=== PATIENT | male | born 1955 | race African-American/Black ===

== ENCOUNTER 2017-12-10 13:22 | Inpatient (IN) | payer OTHER ==
[~2017-12-10] VITALS: Ht 188 cm; Wt 95.4 kg
[~2017-12-10 13:22] MED LIST: HYDR-1421
[2017-12-10 15:29] LABS: Basophils # (auto) 0 uL; Basophils % (auto) 0.3 % (0.0-2.0); Eosinophils # (auto) 0.2 uL; Eosinophils % (auto) 1.9 % (0.0-7.0); Hematocrit 46.9 % (41.0-53.0); Hemoglobin 15.7 g/dL (13.5-17.5); Lymphocytes # (auto) 1.5 uL; Lymphocytes % (auto) 15.9 % (10.0-50.0); Mean Corpuscular Hemoglobin 33.3 pg (28.0-32.0); Mean Corpuscular Hgb Conc. 33.5 g/dL (32.0-36.0); Mean Corpuscular Volume 99.4 fL (80.0-100.0); Monocytes # (auto) 0.8 uL; Monocytes % (auto) 8.1 % (0.0-12.0); Neutrophils # (auto) 7.2 uL; Neutrophils % (auto) 73.8 % (37.0-80.0); Nucleated Red Blood Cells % 0.1 %; Platelet Count (auto) 190 10^3/uL (140-450); Red Blood Cells 4.71 10^6/uL (4.5-5.90); White Blood Cell 9.7 10^3/uL (4.4-10.8)
[2017-12-10 15:47] LABS: Albumin 3.4 g/dL (3.4-5.0); BUN/Creatinine Ratio 11.5; Bilirubin, Total 1.1 mg/dL (0.2-1.0); Calcium 8.4 mg/dL (8.5-10.1); Potassium 3.7 mmol/L (3.5-5.1); Total Protein 7.7 g/dL (6.4-8.2)
[2017-12-10] MEDS ORDERED: NITROGLYCERIN 0.4 MG SL TAB SL PRN (16:00)
[2017-12-10] MEDS ORDERED: MORPHINE SULFATE 4 MG/ML SYR/VIAL IV PRN (16:00)
[2017-12-10] MEDS ORDERED: PANTOPRAZOLE 40 MG/10 ML VIAL IV ONE (16:00)
[2017-12-10] MEDS ORDERED: LEVOFLOXACIN 500MG 100 ML IV ONE (16:00)
[2017-12-10] MEDS ORDERED: LORazepam 2MG/ML-1ML VIAL IV PRN (16:00)
[2017-12-10] MEDS ORDERED: MORPHINE SULF INJ 2 MG/ML SYRINGE 1ML IV PRN ×2 (16:00)
[2017-12-10] MEDS ORDERED: ONDANSETRON HCL 4 MG/2 ML VIAL IV PRN (16:00)
[2017-12-10] MEDS: SODIUM CHLORIDE 0.9% 1,000 ML IV SCH (16:38)
[2017-12-10] MEDS ORDERED: TRIATAB3 PO (21:45)
[2017-12-10] MEDS ORDERED: ASPI325T4 PO (21:45)
[2017-12-10] MEDS ORDERED: MET50T PO (21:45)
[2017-12-10] MEDS ORDERED: CLOP75TA41 PO (21:45)
[2017-12-10] MEDS ORDERED: LISI-275 PO (21:45)
[2017-12-10] MEDS: metroNIDAZOLE 500MG/100ML 100 ML IV SCH (22:37)
[2017-12-10 22:42] VITALS: BP 146/93
[2017-12-10 23:30] LABS: Alcohol, Urine < 3.0 mg/dL (0-5); Amphetamine Screen, Urine NEGATIVE (NEGATIVE); Barbiturate Scree,Urine NEGATIVE (NEGATIVE); Benzodiazephine Screen, Urine NEGATIVE (NEGATIVE); Cannabinoid Screen, Urine NEGATIVE (NEGATIVE); Cocaine Screen, Urine NEGATIVE (NEGATIVE); Opiate Scree,Urine NEGATIVE (NEGATIVE); Phencyclidine Screen, Urine NEGATIVE (NEGATIVE)
[2017-12-11 04:50] VITALS: BP 131/78
[2017-12-11] MEDS: SODIUM CHLORIDE 0.9% 1,000 ML IV SCH ×4 (06:19→22:03)
[2017-12-11] MEDS: metroNIDAZOLE 500MG/100ML 100 ML IV SCH ×3 (06:58→22:02)
[2017-12-11 07:51] LABS: Cholesterol 175 mg/dL (< 200); HDL Cholesterol 61 mg/dL (40-59); LDL Cholesterol 114 mg/dL (< 100); Triglycerides 103 mg/dL (< 150)
[2017-12-11 09:00] VITALS: BP 129/80
[2017-12-11] MEDS: PANTOPRAZOLE 40 MG/10 ML VIAL IV SCH (10:32)
[2017-12-11] MEDS: LEVOFLOXACIN 500MG 100 ML IV SCH (10:33)
[2017-12-11 11:02] LABS: Basophils # (auto) 0.1 uL; Eosinophils # (auto) 0.4 uL; Eosinophils % (auto) 4.8 % (0.0-7.0); Hematocrit 46.1 % (41.0-53.0); Hemoglobin 15.6 g/dL (13.5-17.5); Lymphocytes # (auto) 1.8 uL; Lymphocytes % (auto) 22.6 % (10.0-50.0); Mean Corpuscular Hgb Conc. 33.8 g/dL (32.0-36.0); Mean Corpuscular Volume 100.4 fL (80.0-100.0); Monocytes # (auto) 0.5 uL; Monocytes % (auto) 6.4 % (0.0-12.0); Neutrophils # (auto) 5.3 uL; Neutrophils % (auto) 65.2 % (37.0-80.0); Platelet Count (auto) 176 10^3/uL (140-450); Red Cell Distribution Width 14.2 % (11.8-14.3); White Blood Cell 8.2 10^3/uL (4.4-10.8)
[2017-12-11 11:26] LABS: Albumin 2.8 g/dL (3.4-5.0); BUN/Creatinine Ratio 13.6; Bilirubin, Total 0.6 mg/dL (0.2-1.0); Potassium 3.8 mmol/L (3.5-5.1); Total Protein 6.5 g/dL (6.4-8.2)
[2017-12-11 13:00] VITALS: BP 136/95
[2017-12-11 17:00] VITALS: BP 123/69
[2017-12-11 21:34] VITALS: BP 142/89
[2017-12-12] MEDS: SODIUM CHLORIDE 0.9% 1,000 ML IV SCH ×2 (01:19→09:49)
[2017-12-12 05:31] VITALS: BP 140/69
[2017-12-12] MEDS: metroNIDAZOLE 500MG/100ML 100 ML IV SCH (06:34)
[2017-12-12 08:42] VITALS: BP 152/97
[2017-12-12] MEDS: PANTOPRAZOLE 40 MG/10 ML VIAL IV SCH (09:49)
[2017-12-12] MEDS: LEVOFLOXACIN 500MG 100 ML IV SCH (09:49)
[2017-12-12 13:00] VITALS: BP 132/82
== END 2017-12-12 17:09 | disposition home or self-care (01) | DRG 282 ==
LOC: ER 13:22 → TELE 13:23 → TELE-CENTR 18:40 → CENTRAL 12-11 21:40
PROVIDERS: ADMIT Internal Medicine; ATTEND Internal Medicine
DX: K85.90 Acute pancreatitis without necrosis or infection, unspecified (principal); E87.8 Other disorders of electrolyte and fluid balance, not elsewhere classified; E78.5 Hyperlipidemia, unspecified; I10 Essential (primary) hypertension; I25.10 Atherosclerotic heart disease of native coronary artery without angina pectoris; R79.89 Other specified abnormal findings of blood chemistry; F17.210 Nicotine dependence, cigarettes, uncomplicated; I25.2 Old myocardial infarction; Z95.5 Presence of coronary angioplasty implant and graft; Z88.0 Allergy status to penicillin; Z79.899 Other long term (current) drug therapy
CPT/HCPCS: 36415; 71045; 76705; 80053; 80061; 80307; 82150; 83690; 85025; 87081; 93005; 94761; 96361; 96365; 96367; 96375; C9113; J1956; J3490

== ENCOUNTER 2019-05-09 11:34 | Emergency (ER) | payer MEDICAID, OTHER ==
[~2019-05-09] VITALS: Ht 185.4 cm; Wt 95.3 kg
[~2019-05-09 11:34] MED LIST changes: +ASPI325T4 PO; +CLOP75TA41 PO; -HYDR-1421; +LISI-275 PO; +MET50T PO; +TRIATAB3 PO
[2019-05-09 11:44] VITALS: BP 130/94
== END 2019-05-09 14:21 | disposition left against medical advice (07) ==
LOC: ER 11:34
DX: R05 Cough (principal); Z53.21 Procedure and treatment not carried out due to patient leaving prior to being seen by health care provider
CPT/HCPCS: 71046

== ENCOUNTER 2020-06-30 10:24 | Emergency (ER) | payer MEDICAID ==
[~2020-06-30] VITALS: Ht 185.4 cm; Wt 99.8 kg
[~2020-06-30 10:24] MED LIST changes: -CLOP75TA41 PO; +CLOP75TA70 PO
[2020-06-30] MEDS ORDERED: DOCUSATE SOD 100 MG CAP PO ONE (10:30)
[2020-06-30 10:32] VITALS: BP 135/86
== END 2020-06-30 11:57 | disposition home or self-care (01) ==
LOC: ER 10:24
DX: N39.0 Urinary tract infection, site not specified (principal); E78.5 Hyperlipidemia, unspecified; I10 Essential (primary) hypertension; I25.2 Old myocardial infarction; F17.210 Nicotine dependence, cigarettes, uncomplicated; Z88.0 Allergy status to penicillin
CPT/HCPCS: 74018; 81002

== ENCOUNTER 2022-06-06 09:30 | Emergency (ER) | payer MEDICARE, MEDICAID ==
[~2022-06-06] VITALS: Ht 188 cm; Wt 100.0 kg
[2022-06-06] MEDS ORDERED: ALBUTEROL SULF 2.5 MG/0.5ML(0.5%) NEB SOLN NEB ONE (10:30)
[2022-06-06] MEDS ORDERED: IPRATROPIUM BROM 0.5 MG/2.5ML INH SOL NEB ONE (10:30)
[2022-06-06] MEDS: MAGNESIUM SULFATE 1GM/100ML 100 ML IV SCH ×3 (10:50→15:32)
[2022-06-06 10:52] LABS: Basophils # (auto) 0.2 10 ^3/uL (0-0.2); Basophils % (auto) 1.2 % (0.0-2.0); Eosinophils # (auto) 0.1 10 ^3/uL (0-0.8); Eosinophils % (auto) 0.4 % (0.0-7.0); Hematocrit 48.8 % (41.0-53.0); Hemoglobin 16.9 g/dL (13.5-17.5); Lymphocytes # (auto) 1.9 10 ^3/uL (0.4-5.4); Lymphocytes % (auto) 14.4 % (10.0-50.0); Mean Corpuscular Hemoglobin 33.4 pg (28.0-32.0); Mean Corpuscular Hgb Conc. 34.6 g/dL (32.0-36.0); Mean Corpuscular Volume 96.4 fL (80.0-100.0); Monocytes # (auto) 0.9 10 ^3/uL (0-1.3); Monocytes % (auto) 6.8 % (0.0-12.0); Neutrophils # (auto) 10.3 10 ^3/uL (1.6-8.6); Neutrophils % (auto) 77.2 % (37.0-80.0); Nucleated Red Blood Cells % 0.2 %; Red Blood Cells 5.07 10^6/uL (4.5-5.90); Red Cell Distribution Width 13.8 % (11.8-14.3); White Blood Cell 13.3 10^3/uL (4.4-10.8)
[2022-06-06 11:06] LABS: Albumin 3.9 g/dL (3.4-5.0); Calcium 8.8 mg/dL (8.5-10.1); Potassium 4.5 mmol/L (3.5-5.1)
[2022-06-06 11:10] LABS: BUN/Creatinine Ratio 15.4; Bilirubin, Total 0.3 mg/dL (0.2-1.0); Total Protein 7.8 g/dL (6.4-8.2)
[2022-06-06] MEDS ORDERED: HYDROcodone-ACET 5/325MG TAB PO ONE (11:30)
[2022-06-06] MEDS: DexAMETHasone SOD PHOS 10MG/1ML VIAL INJ IV ONE ×2 (11:49→12:15)
[2022-06-06] MEDS ORDERED: LACTATED RINGER'S 1,000 ML IV ONE (13:00)
[2022-06-06 14:05] LABS: Urine Bacteria NONE SEEN /hpf (None Seen); Urine Blood Negative /uL (Negative); Urine Mucus FEW (None Seen); Urine Specific Gravity 1.024 (1.001-1.035); Urine WBC 7 /hpf (0 - 3)
[2022-06-06 17:00] VITALS: BP 150/81
== END 2022-06-06 17:04 | disposition home or self-care (01) ==
LOC: EDBD 09:30 → ER 09:30
DX: J45.998 Other asthma (principal); E78.5 Hyperlipidemia, unspecified; I10 Essential (primary) hypertension; F17.210 Nicotine dependence, cigarettes, uncomplicated; Z98.890 Other specified postprocedural states
CPT/HCPCS: 36415; 36600; 71045; 80053; 81001; 82550; 82805; 83605; 83735; 83880; 84484; 85025; 93005; 94640; 96365; 96366; 96375; 99285; J1100; J3475; J7644; 96361